=== PATIENT | female | born 1985 | race Caucasian/White ===

== ENCOUNTER 2024-05-11 02:58 | Emergency (ER) | payer SELFPAY ==
[~2024-05-11] VITALS: Ht 160 cm; Wt 54.4 kg
[~2024-05-11 02:58] MED LIST: ALBU90OI INH; AMOX500 PO; CLAR250 PO; CYCL10 PO; DEXT30SU PO; FAMO20 PO; HYDACE5 PO; HYDACE7.5 PO; HYDGUAL120 PO; IBUP200; IBUP400 PO; IBUP800 PO; METPRE4DP PO; NAPR500EC PO; PENVK500 PO; PHENA200 PO; PROACE100 PO; ROBITUSSIN; RXPHEN200 PO; SULTRIDS PO; Veetids 500500 MG PO; Zithromax250 MG PO
[2024-05-11] MEDS ORDERED: Morphine Sulfate 4 MG/1 ML Injection IV ONE (03:15)
[2024-05-11] MEDS ORDERED: Ketorolac Tromethamine 15mg Vial IV ONE (03:15)
[2024-05-11] MEDS ORDERED: NS 1,000 ML IV SCH ×2 (03:15)
[2024-05-11] MEDS ORDERED: BUPRENORPHINE HC8 MG SL (03:34)
[2024-05-11 03:37] LABS: BASOPHILS ABSOLUTE AUTO 0.02 K/mm3 (0.00-0.23); BASOPHILS PERCENT AUTO 0 % (0-2); EOSINOPHILS ABSOLUTE AUTO 0.01 K/mm3 (0.00-0.68); EOSINOPHILS PERCENT AUTO 0 % (0-6); Hematocrit 39.1 % (33.0-51.0); Hemoglobin 13.5 g/dL (11.5-16.0); IMMATURE GRAN ABSOLUTE AUTO 0.04 K/mm3 (0.00-0.10); IMMATURE GRAN PERCENT AUTO 0 % (0-1); LYMPHOCYTES ABSOLUTE AUTO 1.04 K/mm3 (0.84-5.20); LYMPHOCYTES PERCENT AUTO 8 % (21-46); MONOCYTES ABSOLUTE AUTO 0.42 K/mm3 (0.16-1.47); MONOCYTES PERCENT AUTO 3 % (4-13); Mean Corpuscular HGB 28.2 pg (26.0-34.0); Mean Corpuscular HGB Conc 34.5 g/dL (31.5-36.5); Mean Corpuscular Volume 82 fL (80-100); Mean Platelet Volume 9.3 fL (9.1-12.4); NEUTROPHILS ABSOLUTE AUTO 11.52 K/mm3 (1.96-9.15); NEUTROPHILS PERCENT AUTO 88 % (41-73); Platelet Count 304 K/mm3 (150-400); RDW Coefficient Variation 12.8 % (11.7-14.2); RDW Standard Deviation 38.6 fL (35.1-46.3); Red Blood Cell Count 4.78 M/mm3 (3.80-5.20); White Blood Cell Count 13.05 K/mm3 (4.00-11.30)
[2024-05-11 03:56] LABS: Albumin, Blood 3.7 g/dL (3.4-5.0); Bilirubin, Total 0.6 mg/dL (0.1-1.0); Bun/Creatinine Ratio 27.4 (12.0-20.0); Calcium, Blood 8.8 mg/dL (8.5-10.1); Creatinine, Blood 0.59 mg/dL (0.40-1.00); Globulin, Blood 3.6 g/dL (2.2-4.0); Potassium, Blood 3.5 mmol/L (3.5-5.5); Total Protein, Blood 7.3 g/dL (6.4-8.2)
[2024-05-11 04:47] LABS: Source, Urine Clean Catch
[2024-05-11 04:50] LABS: Bilirubin, Urine Neg (Neg); Blood, Urine 4+ (Neg); Glucose Qualitative, Urine Neg (Neg); Ketones, Urine 3+ (Neg); Leukocyte Esterase, Urine 1+ (Neg); Nitrite, Urine Neg (Neg); Protein, Urine 2+ (Neg); Urobilinogen, Urine NORM (Normal)
[2024-05-11 04:57] LABS: Appearance, Urine Hazy (Clear); Color, Urine Yellow (P-Yellow)
[2024-05-11 04:58] LABS: Bacteria Mod /hpf; Red Blood Cells, Urine 50-100 /hpf (0-2); Squamous Epithelial Cells Few /hpf (Few); White Blood Cells, Urine 0-2 /hpf (0-5)
[2024-05-11 04:59] LABS: Mucus Mod (0-Heavy)
[2024-05-11] MEDS ORDERED: IBU600 MG PO (05:55)
[2024-05-11] MEDS ORDERED: Flomax0.4 MG PO (05:55)
[2024-05-11] MEDS ORDERED: Norco 5-325 Ta1 EACH PO (05:55)
[2024-05-11 06:02] VITALS: BP 129/95
== END 2024-05-11 06:07 | disposition home or self-care (01) ==
LOC: ER 02:58
PROVIDERS: Emergency Medicine
DX: N20.2 Calculus of kidney with calculus of ureter (principal); F17.210 Nicotine dependence, cigarettes, uncomplicated; Z79.899 Other long term (current) drug therapy
CPT/HCPCS: 74176; 80053; 81001; 81025; 83605; 85025; 87086; 96361; 96374; 96375; 99284-25; J1885; J2270; J7030